=== PATIENT | male | born 1955 ===

== ENCOUNTER → 2018-11-01 22:21 | Outpatient (ROUT) | payer OTHER, SELFPAY ==
[2018-11-02 02:18] LABS: Cholesterol 144 mg/dL (140-199); HDL Cholesterol 33 mg/dL (40-60); LDL Cholesterol Calculated 48 mg/dL (<100); Triglycerides 315 mg/dL (35-150)
[2018-11-02 04:09] LABS: Prostate Specific Antigen 1.76 ng/mL (0.10-4.00)
== END ==
PROVIDERS: Visit Provider Family Medicine
DX: Z12.5 Encounter for screening for malignant neoplasm of prostate (principal); Z13.6 Encounter for screening for cardiovascular disorders
CPT/HCPCS: 36415; 80061; 84153